=== PATIENT | female | born 1975 | race Two or more races ===

== ENCOUNTER 2017-06-09 13:21 | Emergency (ER) | payer OTHER ==
[~2017-06-09] VITALS: Ht 175.3 cm; Wt 65.8 kg
[2017-06-09] MEDS ORDERED: CLONAZEPAM0.5 MG (13:35)
== END 2017-06-09 16:24 | disposition home or self-care (01) ==
LOC: ER 13:21
DX: M54.2 Cervicalgia (principal)

== ENCOUNTER 2018-02-25 07:33 | Emergency (ER) | payer OTHER ==
[~2018-02-25] VITALS: Ht 175.3 cm; Wt 68.0 kg
[~2018-02-25 07:33] MED LIST: CLONAZEPAM0.5 MG
== END 2018-02-25 20:34 | disposition home or self-care (01) ==
LOC: ER 07:33
DX: R10.32 Left lower quadrant pain (principal); I88.0 Nonspecific mesenteric lymphadenitis; N39.0 Urinary tract infection, site not specified